=== PATIENT | female | born 1965 ===

== ENCOUNTER 2017-05-27 07:52 | Inpatient (IN) ==
--- NOTE | 2017-05-27 10:23 | Hospitalist History & Physical ---
Assessment and Plan (1) Pyelonephritis Status: Acute Assessment and plan: Obtain ultrasound of the kidney and retroperitoneal structures. Attention be paid to the kidney ureter bladder axis for possibility of not only pyelonephritis but also obstructing structures to the ureter and collecting system. She has had ertapenem and vancomycin given the ready I will switch the ertapenem to meropenem just on outside chance that we are dealing with Pseudomonas. Continue the vancomycin in the meantime. If blood pressures drop again patient will be given a loading dose of an aminoglycoside for few gram- negative urosepsis. Repeat a BMP and magnesium, CBC in the morning patient will be monitored in the NICU. Of consulted Dr. Murphy for a PICC line that will be put in due course. Current Visit: Yes (2) Hypotension Status: Acute Assessment and plan: As above. Patient will have lactic acid drawn alongside the other levels. This is elevated and repeat lactic acid will be drawn again in 6 hours. Due to monitor vital signs in ICU. Current Visit: Yes (3) Abdominal pain Status: Acute Assessment and plan: Suspect this is a result of urinary tract infection. Will evaluate for possibility of obstructing lesions as mentioned above. You repeat urinalysis and reflex urine culture be done Current Visit: Yes (4) Diabetes type 2, uncontrolled Status: Acute Assessment and plan: Patient will be put on basal insulin coverage home medication will be reviewed and resumed with appropriate modifications Current Visit: No Qualifiers: Diabetes mellitus complication status: with hyperglycemia History of Present Illness Chief complaint: Transfer from [facility]/UTI and hypotension i.e. septic shock History of present illness: is a 51 year old female Transfer from [facility] today with hypotension. Reported this patient has had complaints of urinary tract infection starting about a week and a half ago. She was given an oral antibiotic initially to treat his symptoms which failed symptoms worsen and they at that point came back to the clinic in the [facility] system where they looked at to the sensitivity of the initial urine suggested a change antibiotic to Levaquin which has not made a dent on her program she is now having lower abdominal pain right-sided costovertebral angle tenderness and a was noted to be hypotensive. Patient was started on IV fluids given a dose of ertapenem and the dose of vancomycin and [facility] evaluation and management. Is currently a with an optimal mean arterial pressure above 65 systolic blood pressure 112 initially. She is able to talk to me and answer questions without any limitations. This patient has accompanying documents with our unfortunately I cannot locate the antibiogram of the inciting organism as described in the accompanying notes. I do not know what organism it is however a urinalysis from yesterday obtained at about 7:12 PM has yellow clear urine 3+ glucose pH of 5.52+ blood and trace leukocyte esterase negative nitrite 25-30 red cells per high-power field. Home Medications Medication Instructions Recorded Confirmed Type Insulin Aspart [NovoLOG FlexPen] 10 unit SUBCUT DAILY 12/15/15 12/16/15 History Simvastatin [Zocor] 10 mg PO BEDTIME 12/15/15 12/15/15 History Tramadol HCl [Tramadol Tab] 50 mg PO BID 12/15/15 12/15/15 History cycloSPORINE OPH EMUL [Restasis] 1 drop BOTH EYES Q12HR 12/15/15 12/15/15 History glipiZIDE [Glipizide] 10 mg PO DAILY 12/15/15 12/15/15 History hydroCHLOROthiazide 25 mg PO DAILY 12/15/15 12/15/15 History [Hydrochlorothiazide] Allergies Allergy/AdvReac Type Severity Reaction Status Date / Time captopril AdvReac Nausea Verified 12/16/15 06:37 Medical,Surgical,& Family Hx - Medical History Cardio: History of: Hypertension Neurology: No history of: Seizures Endocrine: History of: Diabetes Mellitus (IDDM), Diabetes Mellitus (NIDDM) Hematology: No history of: Blood Transfusion Reaction Other: History of: Miscellaneous Medical Problems (abscesses, including a previously drained perirectal abscess.) No history of: Anesthesia Reactions, Anaphylaxis, Cancer - Surgical History Cardiac Surgeries: Patient Denies: Cardiac Catheterization Thoracic Surgeries: Patient denies;: Organ Transplant HEENT Surgeries: Patient denies: Eye Surgery Abdominal Surgeries: Patient denies: Abdominal Surgery Reproductive Surgeries: Surgical HX of;: Hysterectomy Orthopedic Surgeries: Surgical HX of;: Orthopedic Surgery (right rotator cuff repair) - Family History Family History: Reports;: Family Cancer (mom), Family Diabetes - Social History Smoking Status: Never smoker Review of systems: A 12 point system assessment was done patient is awake and answers questions appropriately no acute distress at this point blood pressure is optimal but the reported being very low prior to initiation of antibiotics and IV fluids. Other than the chief complaint and history of presenting illness and past medical history a 12 point system assessment is unremarkable Exam - Constitutional General appearance: morbidly obese - Head Head exam: Present: normocephalic, atraumatic - Eye Eye exam: Present: EOMI, other Pupils: Present: JENNIFER (Anicteric sclera) - ENT ENT exam: Present: normal oropharynx - Respiratory Respiratory exam: Present: clear to auscultation bilaterally - Cardiovascular Cardiovascular exam: Present: regular rate and rhythm - GI/Abdominal GI/Abdominal exam: Present: normal bowel sounds, soft, other (Bilateral costovertebral angle tenderness but most on the right side) - Extremities Exam Extremities exam: Present: full ROM - Neurological Exam Neurological exam: Present: alert, oriented X3, CN II-XII intact - Psychiatric Psychiatric exam: Present: normal affect, normal mood - Skin Skin exam: Present: normal color, warm, dry Results - Labs Lab Results: I have reviewed the past 24 hour labs (Reviewed the emergency room [facility]. No labs have been done here yet. Urine cultures from [facility] is not available but patient did have some pyuria on urinalysis done yesterday evening. The emergency room cultures done then. She does have elevated blood sugars and glucosuria CBC a white count of 11,000 hemoglobin 11.2 g percent hematocrit of 33.5 reticulocyte count 296,000 red cell indices were unremarkable chemistry creatinine of 0.9 calcium 7.3 sodium of 129 glucose of 251 BUN of 18 chloride of 97 bicarb of 22 alk phos of 97 SGOT 18 SGPT 21 lipase of 59 with the hypotension that was noted with need to check lactic acid repeat chemistries UA reflex urine culture and CBC. Also sent 2 sets of blood cultures)
[2017-05-27] MEDS ORDERED: GLUCAGON 1 MG VIAL IM PRN (10:46)
[2017-05-27] MEDS ORDERED: DEXTROSE 50% 25 GM/50 ML VIAL IV PRN (10:46)
[2017-05-27] MEDS ORDERED: LIDOCAINE 1% 20 ML VIAL MISC INJ ONE (11:09)
--- NOTE | 2017-05-27 11:25 | Operative Note ---
Date of procedure: 05/27/17 Pre-op diagnosis: Pyelonephritis Post-op diagnosis: same Procedure: The patient is a 51-year-old that is somewhat hypotensive and septic and needs IV line. A PICC line will be placed at the bedside. Procedure: The right arm was prepped and draped with the usual maximal sterile technique. With ultrasound guidance a right basilic vein was accessed. With a modified Seldinger technique, a 5 Irish double lumen power PICC was placed to 45 cm. There was good blood return and the line was sutured in place. She tolerated the procedure well without problems. Impression: PICC line placement right basilic vein to 45 cm. Anesthesia: local Surgeon / Physician: Santiago Murphy Estimated blood loss: minimal Specimens: none sent Condition: stable Disposition: ICU Discharge Plan - Discharge Medications No Action Tramadol HCl [Tramadol Tab] 50 mg PO BID glipiZIDE [Glipizide] 10 mg PO DAILY cycloSPORINE OPH EMUL [Restasis] 1 drop BOTH EYES Q12HR Simvastatin [Zocor] 10 mg PO BEDTIME hydroCHLOROthiazide [Hydrochlorothiazide] 25 mg PO DAILY Insulin Aspart [NovoLOG FlexPen] 10 unit SUBCUT DAILY - Follow Up or Referral - Forms/Instructions
[2017-05-27 12:15] LABS: Basophils % 0.1 % (0.0-0.8); Hematocrit 31.2 VOL% (35.7-47.0); Hemoglobin 11.3 GM/DL (12.0-16.0); Immature Granulocytes % 0.6 %; Immature Granulocytes Absolute 0.07 #; Lymphocytes # 0.6 10*3/uL (1.4-4.0); Lymphocytes % 5.1 % (21.3-54.2); Mean Corpuscular HGB Conc 36.2 GM/DL (32-36); Mean Corpuscular Hemoglobin 32 PG (27-34); Mean Corpuscular Volume 86.9 FL (87-102); Mean Platelet Volume 10.3 FL (9.6-12.0); Monocytes % 9.1 % (1.7-12.7); Neutrophils # 9.8 10*3/uL (1.4-7.4); Neutrophils % 85.1 % (38.7-73.9); Platelet Count 183 T/CUMM (130-400); Red Blood Count 3.59 MC/CUMM (3.8-5.5); Red Cell Distribution Width 12.6 % (9.3-17.3); White Blood Count 11.5 T/CUMM (4-12)
[2017-05-27 12:44] LABS: Albumin 2.5 G/DL (3.4-5.0); Bilirubin,Total 1.7 MG/DL (0.2-1.0); Calcium 7.5 MG/DL (8.5-10.1); Magnesium 1.7 MG/DL (1.8-2.4); Osmolality,Calculated 270.1 MOS/KG (273-304); Total Protein 5.8 G/DL (6.4-8.3)
[2017-05-27] MEDS: INSULIN REGULAR 100 UNIT/ML SUBCUT SCH ×4 (12:55→20:58)
[2017-05-27] MEDS ORDERED: SODIUM CHLORIDE 0.9% 1,000 ML IV SCH (13:00)
[2017-05-27] MEDS ORDERED: ACETAMINOPHEN 325 MG TABLET PO PRN (13:10)
[2017-05-27 13:20] LABS: Hypochromasia Slight
[2017-05-27 13:37] LABS: Apearance,Urine CLEAR (Clear); Bacteria,Urine Occasional /HPF (Few); Bilirubin,Urine Negative (Negative); Blood, Urine Moderate mg/dL (Negative); Glucose,Urine (UA) >=500 mg/dL (Negative); Ketones,Urine Negative (Negative); Mucus,Urine Occasional /LPF (Occasional); Nitrite,Urine Negative (Negative); Protein,Urine 30 MG/DL; RBC,Urine 9 /HPF (0-4); Squamous Epithelial Cell,Urine Occasional /HPF (0-10); Urine Color Amber (Yellow); Urine Specific Gravity 1.025 (1.001-1.035); WBC,Urine 24 /HPF (0-6)
--- NOTE | 2017-05-27 13:55 | CT Report ---
CT abdomen pelvis w con Indication: Abdominal pain, UTI. CT ABDOMEN AND PELVIS WITH CONTRAST DLP: 1909 mGy*cm. One or more of the following dose reduction techniques was used: Automated exposure control, adjustment of the mA and/or kV according the patient size, or use of iterative reconstruction techniques. Comparison: 05/05/[address] Technique: Axial CT images of the abdomen and pelvis were obtained with IV contrast; Omnipaque 350, 100 cc. Oral contrast was not administered. Abdomen: Calcified atheromatous disease of the coronary arteries noted. Heart size is normal. Bibasilar atelectasis. Fatty infiltration of the liver. No focal liver lesion. Cholecystectomy clips. Adrenal glands, pancreas and spleen are within normal limits. Left kidney is normal in size without inflammation or focal lesion. Right kidney appears enlarged. There is a wedge-shaped area of decreased perfusion midpole that is evidence of focal pyelonephritis. No perinephric abscess. There is also a second hypodensity that is round within the medial mid pole, likely a cyst. There is perinephric fat stranding on the right. The urinary collecting system is not obstructed and there are no stones within either kidney or either ureter. Urinary bladder is contracted but contains contrast. No bowel obstruction. Pelvis: Contracted urinary bladder as described. Uterus is absent. Rectosigmoid colon appears unremarkable. Trace amount of free fluid in the cul-de-sac is present. No free air or lymphadenopathy identified. Impression: 1. Focal perfusion defect of the mid right kidney is evidence of focal pyelonephritis. No evidence of pyonephrosis, urinary calculi, obstructive uropathy or perinephric abscess. Small amount of right perinephric fat stranding noted. 2. 15 mm hypodensity medial right kidney is likely a cyst. 3. Hepatic steatosis. PROCEDURE INTERPRETED AT [facility] DEPARTMENT OF RADIOLOGY Final Report Signed by: Nadir Dobson M.D.
[2017-05-27] MEDS ORDERED: ERGOCALCIFEROL 50,000 UNIT CAPSULE PO SCH (15:30)
[2017-05-27] MEDS: GENTAMICIN INJ 240 MG in SODIUM CHLORIDE 0.9% 100 ML IV SCH (16:09)
[2017-05-27] MEDS: SODIUM CHLORIDE 1 GM TABLET PO SCH ×2 (16:09→20:38)
[2017-05-27] MEDS: DICLOFENAC 1% GEL 100 GM TUBE TOP SCH ×2 (18:50→20:58)
[2017-05-27] MEDS: GABAPENTIN 100 MG CAPSULE PO SCH (20:38)
[2017-05-27] MEDS: SIMVASTATIN 10 MG TABLET PO SCH (20:38)
[2017-05-27] MEDS: traMADol 50 MG TABLET PO SCH (20:38)
[2017-05-27] MEDS: cycloSPORINE OPH EMUL 1 VIAL BOTH EYES SCH (20:38)
[2017-05-27] MEDS ORDERED: INSULIN GLARGINE 100 UNIT/ML SUBCUT SCH ×2 (21:00)
[2017-05-27] MEDS: ONDANSETRON 4 MG/2 ML VIAL IV PRN (21:05)
[2017-05-28 06:03] LABS: Calcium 7.7 MG/DL (8.5-10.1); Magnesium 1.8 MG/DL (1.8-2.4); Osmolality,Calculated 264.7 MOS/KG (273-304); Potassium 3.8 MMOL/L (3.5-5.1)
[2017-05-28] MEDS: SODIUM CHLORIDE 1 GM TABLET PO SCH ×3 (08:29→20:59)
[2017-05-28] MEDS: cycloSPORINE OPH EMUL 1 VIAL BOTH EYES SCH ×2 (08:29→20:58)
[2017-05-28] MEDS: traMADol 50 MG TABLET PO SCH ×2 (08:29→20:59)
[2017-05-28] MEDS: glipiZIDE 10 MG TABLET PO SCH (08:29)
[2017-05-28] MEDS: GABAPENTIN 100 MG CAPSULE PO SCH ×3 (08:29→20:59)
[2017-05-28] MEDS: INSULIN REGULAR 100 UNIT/ML SUBCUT SCH ×4 (08:29→20:58)
[2017-05-28] MEDS: ASPIRIN EC 81 MG TABLET PO SCH (08:30)
[2017-05-28] MEDS: DICLOFENAC 1% GEL 100 GM TUBE TOP SCH ×4 (08:31→20:59)
[2017-05-28] MEDS: amLODIPine 2.5 MG TABLET PO SCH (08:36)
[2017-05-28] MEDS: hydroCHLOROthiazide 25 MG TABLET PO SCH (08:36)
--- NOTE | 2017-05-28 09:41 | Hospitalist Progress Note ---
Assessment and Plan (1) Pyelonephritis Status: Acute Assessment and plan: Patient had abdominal CT scan done yesterday that revealed presence of pyelonephritis. No obstructive disease. Did receive gentamicin yesterday after ertapenem and will plan to start vancomycin as we await for cultures. 2 sets of blood cultures were ordered yesterday. Doing very well she will be transferred to the medical floor today Current Visit: Yes (2) Hypotension Status: Acute Assessment and plan: Blood pressures have normalized. Current Visit: Yes (3) Abdominal pain Status: Acute Assessment and plan: Significant improvement today. This remnant bilateral CVA tenderness. Current Visit: Yes (4) Diabetes type 2, uncontrolled Status: Acute Assessment and plan: Morning sugar was 155. Hopefully this continued to improve. Current Visit: No Qualifiers: Diabetes mellitus complication status: with hyperglycemia Hospitalist: Subjective Interval history: Patient has been seen interviewed and examined and chart has been reviewed. She is doing very well today. She reports significant improvement in abdominal pain especially of the suprapubic pain. She still has residual pain in the left and right costovertebral angles. CT scan revealed presence of pyelonephritis but no obstructive disease in the kidney ureter bladder axis. She should will be transferred from the intensive care unit general medical floor today Exam - Constitutional Vitals: Period Temp Pulse Resp BP Sys/Rivera Pulse Ox Last 24 Hr 97.9 F-102.3 F 76-110 10-28 100-155/56-86 89-100 General appearance: over weight - Head Head exam: Present: normocephalic, atraumatic - Eye Eye exam: Present: EOMI Pupils: Present: JENNIFER - ENT ENT exam: Present: normal oropharynx - Neck Neck exam: Present: normal inspection - Respiratory Respiratory exam: Present: clear to auscultation bilaterally - Cardiovascular Cardiovascular exam: Present: regular rate and rhythm - GI/Abdominal GI/Abdominal exam: Present: normal bowel sounds, soft, other (Bilateral CVA tenderness. Improvement in suprapubic tenderness.) - Extremities Exam Extremities exam: Present: full ROM - Neurological Exam Neurological exam: Present: alert, oriented X3, CN II-XII intact - Psychiatric Psychiatric exam: Present: normal affect, normal mood - Skin Skin exam: Present: normal color, warm, dry Results - Labs CBC & BMP: 05/27/17 12:01 05/28/17 05:00 Lab Results: I have reviewed the past 24 hour labs
[2017-05-28] MEDS: VANCOMYCIN INJ 1,250 MG in SODIUM CHLORIDE 0.9% 250 ML IV SCH ×2 (10:13→22:30)
[2017-05-28] MEDS: MEROPENEM 1,000 MG in SODIUM CHLORIDE 0.9% 100 ML IV SCH ×2 (10:16→17:15)
[2017-05-28] MEDS ORDERED: Propylene Glycol/Peg 400 [Systane Gel Drops] 1 DROP BOTH EYES PRN (12:59)
[2017-05-28] MEDS: GENTAMICIN INJ 240 MG in SODIUM CHLORIDE 0.9% 100 ML IV SCH (16:00)
[2017-05-28] MEDS: metFORMIN 850 MG TABLET PO SCH (17:15)
[2017-05-28] MEDS: ONDANSETRON 4 MG/2 ML VIAL IV PRN (17:15)
[2017-05-28] MEDS: INSULIN GLARGINE 100 UNIT/ML SUBCUT SCH (20:58)
[2017-05-28] MEDS: SIMVASTATIN 10 MG TABLET PO SCH (20:59)
[2017-05-29] MEDS: MEROPENEM 1,000 MG in SODIUM CHLORIDE 0.9% 100 ML IV SCH ×3 (03:24→17:00)
[2017-05-29] MEDS: cycloSPORINE OPH EMUL 1 VIAL BOTH EYES SCH ×2 (09:10→20:47)
[2017-05-29] MEDS: INSULIN REGULAR 100 UNIT/ML SUBCUT SCH ×4 (09:10→20:45)
[2017-05-29] MEDS: GABAPENTIN 100 MG CAPSULE PO SCH ×3 (09:11→20:46)
[2017-05-29] MEDS: glipiZIDE 10 MG TABLET PO SCH (09:11)
[2017-05-29] MEDS: metFORMIN 850 MG TABLET PO SCH ×2 (09:11→16:52)
[2017-05-29] MEDS: hydroCHLOROthiazide 25 MG TABLET PO SCH (09:11)
[2017-05-29] MEDS: ASPIRIN EC 81 MG TABLET PO SCH (09:11)
[2017-05-29] MEDS: traMADol 50 MG TABLET PO SCH ×2 (09:11→20:46)
[2017-05-29] MEDS: amLODIPine 2.5 MG TABLET PO SCH (09:11)
[2017-05-29] MEDS: DICLOFENAC 1% GEL 100 GM TUBE TOP SCH ×4 (09:18→20:47)
--- NOTE | 2017-05-29 11:13 | Hospitalist Progress Note ---
Assessment and Plan (1) Diabetes type 2, uncontrolled Status: Acute Assessment and plan: Continue home regimen Current Visit: No Qualifiers: Diabetes mellitus complication status: with hyperglycemia (2) Pyelonephritis Status: Acute Assessment and plan: CT is consistent with this Urine culture actually with no growth at 24 hours, continue to f/u final Blood cultures also with no growth to date Will continue vancomycin and merrem Hypotension is resolved Current Visit: Yes Hospitalist: Subjective Interval history: No acute events overnight. She denies abdominal or back pain. She also denies shortness of breath. Exam - Constitutional Vitals: Period Temp Pulse Resp BP Sys/Rivera Pulse Ox Last 24 Hr 97.7 F-100.2 F 77-96 14-20 113-149/59-89 93-100 General appearance: normal weight - Head Head exam: Present: normocephalic, atraumatic - Eye Eye exam: Present: EOMI Pupils: Present: JENNIFER - ENT ENT exam: Present: normal exam - Neck Neck exam: Present: normal inspection - Respiratory Respiratory exam: Present: clear to auscultation bilaterally - Cardiovascular Cardiovascular exam: Present: regular rate and rhythm - GI/Abdominal GI/Abdominal exam: Present: normal bowel sounds, soft. Absent: tenderness, rebound - Extremities Exam Extremities exam: Present: normal inspection - Back Exam Back exam: Present: normal inspection - Neurological Exam Neurological exam: Present: alert, oriented X3 - Psychiatric Psychiatric exam: Present: normal affect, normal mood - Skin Skin exam: Present: warm, intact Results - Labs CBC & BMP: 05/27/17 12:01 05/28/17 05:00
[2017-05-29 12:16] LABS: Calcium 7.8 MG/DL (8.5-10.1); Osmolality,Calculated 281.7 MOS/KG (273-304); Potassium 4.1 MMOL/L (3.5-5.1)
[2017-05-29] MEDS: VANCOMYCIN INJ 1,250 MG in SODIUM CHLORIDE 0.9% 250 ML IV SCH ×2 (13:45→21:35)
[2017-05-29] MEDS: INSULIN GLARGINE 100 UNIT/ML SUBCUT SCH (20:46)
[2017-05-29] MEDS: SIMVASTATIN 10 MG TABLET PO SCH (20:47)
[2017-05-30] MEDS: MEROPENEM 1,000 MG in SODIUM CHLORIDE 0.9% 100 ML IV SCH ×2 (02:01→11:06)
[2017-05-30 07:14] LABS: Calcium 7.6 MG/DL (8.5-10.1); Magnesium 1.7 MG/DL (1.8-2.4); Osmolality,Calculated 274.4 MOS/KG (273-304); Potassium 3.5 MMOL/L (3.5-5.1)
[2017-05-30 07:37] VITALS: BP 122/62
--- NOTE | 2017-05-30 08:40 | XRay Report ---
Portable chest Date: 05/27/2017 Clinical history: Sepsis, hyponatremia Comparison: 05/05/2016 Technique: Portable AP sitting chest Findings: Films submitted for interpretation 05/30/2017. The heart remains normal in size. Artifactual densities limit evaluation of the left upper lobe where there is progressive diffuse parenchymal findings extending to the level of the left hilum. Expiratory chest with progressive parenchymal findings at the lung bases. Right arm PICC line with tip in right atrium. No pneumothorax. Minimally increased hilar density with no acute osseous findings. Impression: Limited expiratory chest with findings which can be seen with bilateral pneumonia with associated atelectasis. It is difficult to exclude additional pathology in the left upper lobe and follow-up chest x-ray is recommended to document clearing. PROCEDURE INTERPRETED AT [facility] DEPARTMENT OF RADIOLOGY Final Report Signed by: Dr. Portia Devlin
[2017-05-30] MEDS: amLODIPine 2.5 MG TABLET PO SCH (09:21)
[2017-05-30] MEDS: GABAPENTIN 100 MG CAPSULE PO SCH (09:21)
[2017-05-30] MEDS: glipiZIDE 10 MG TABLET PO SCH (09:21)
[2017-05-30] MEDS: traMADol 50 MG TABLET PO SCH (09:21)
[2017-05-30] MEDS: metFORMIN 850 MG TABLET PO SCH (09:22)
[2017-05-30] MEDS: ASPIRIN EC 81 MG TABLET PO SCH (09:22)
[2017-05-30] MEDS: hydroCHLOROthiazide 25 MG TABLET PO SCH (09:22)
[2017-05-30] MEDS: INSULIN REGULAR 100 UNIT/ML SUBCUT SCH ×2 (09:22→12:33)
[2017-05-30] MEDS: DICLOFENAC 1% GEL 100 GM TUBE TOP SCH (09:23)
[2017-05-30] MEDS: cycloSPORINE OPH EMUL 1 VIAL BOTH EYES SCH (09:26)
--- NOTE | 2017-05-30 10:00 | Discharge Summary ---
<Adelina Figueroada - Last Filed: 05/30/17 09:57> Hospital Course - Hospital Course Hospital Course: This is a 51-year-old female that presented to [facility] on May 27, 2017 as a transfer from the [facility] for the further evaluation of septic shock secondary to urinary tract infection. Patient has a medical history significant for hypertension, insulin-dependent diabetes mellitus, and recurrent abscesses. Patient has surgical history significant for hysterectomy, right rotator cuff repair, and multiple incision and drainage procedure secondary to recurrent abscesses. The patient reported the onset of symptoms 2 days prior to presentation. She was seen and evaluated at the [facility], told that she had a urinary tract infection, and given oral antibiotic agents for treatment. The patient's condition failed to improve causing the patient to present back to the [facility] for the second time for the above complaint. At that time, culture and sensitivity report was available which showed a sensitivity to Levaquin. The medical staff contemplated on changing the patient's oral antibiotic agent according to the sensitivity report however, at the time of presentation the patient was noted to be experiencing right-sided abdominal pain and costovertebral angle tenderness. In addition, the patient was noted to be hypotensive. Blood cultures were obtained and empiric antibiotic doses were given. The patient was subsequently transferred to [facility] for continuation of care. Empiric antibiotics, gentle rehydration, and pain management was initiated at the time of admission. CT abdomen and pelvis was ordered at the time of admission; which reported focal perfusion deficit of the mid right kidney is evidence of pyelonephritis, no evidence of pyonephritis, urinary calculi, obstructive uropathy, or perinephrenic abscesses were noted. A small amount of right perinephric fat stranding was noted. In addition, a 15 mm hypodensity was noted to the right medial kidney which was large suggested as a cyst and hepatic steatosis was noted. Antibiotic coverage was continued and the patient' s condition gradually improved. Blood and urine culture unremarkable with no growth to date noted. The patient's condition is stable. The patient has not experienced any significant overnight events. Today, we feel that the patient is indeed appropriate for discharge to follow-up at the [facility] as indicated. Discharge Plan - Discharge Data Disposition: Disch To Home/Self Care - Discharge Medications New Ciprofloxacin Tab [Cipro Tab] 500 mg PO BID #16 tablet Continue glipiZIDE [Glipizide] 10 mg PO DAILY cycloSPORINE OPH EMUL [Restasis] 1 drop BOTH EYES Q12HR Simvastatin [Zocor] 10 mg PO BEDTIME hydroCHLOROthiazide [Hydrochlorothiazide] 25 mg PO DAILY Ergocalciferol [Drisdol] 50,000 unit PO Q7D Propylene Glycol/Peg 400 [Systane Gel Drops] 1 drop BOTH EYES QID PRN PRN Reason: Dry Eyes Diclofenac 1% Gel [Voltaren 1% Gel] 2 gram TOP QID metFORMIN [Glucophage] 850 mg PO BID W/MEALS Acetaminophen 650 mg PO Q6HR PRN PRN Reason: Fever, Headache, Mild Pain Insulin Detemir [Levemir FlexPen] 50 unit SUBCUT BEDTIME Gabapentin 100 mg PO TID Aspirin EC Tab 81 mg PO DAILY Discontinued metroNIDAZOLE [Metronidazole Cap/Tab] 500 mg PO BID Naproxen [Naprosyn Tab] 220 mg PO DAILY PRN PRN Reason: Pain levoFLOXacin [Levofloxacin] 500 mg PO DAILY Ibuprofen 400 mg PO Q6HR PRN PRN Reason: Pain Sulfameth/Trimeth 800-160 Tab [Bactrim DS Tab] 1 tablet PO BEDTIME Lisinopril 20 mg PO DAILY - Follow Up or Referral - Forms/Instructions Exam - Constitutional Vitals: Period Temp Pulse Resp BP Sys/Rivera Pulse Ox Last 24 Hr 97.1 F-98.8 F 73-91 16-18 111-136/51-75 92-100 Discharge Results Procedures and tests throughout hospitalization: Pending Orders 05/27/17 13:35 Blood Culture Routine 05/30/17 10:00 Vancomycin,Trough Timed Labs on day of discharge: Labs from last 24 hours 05/30/17 05/30/17 05/29/17 06:32 05:46 20:03 Sodium 140 Potassium 3.5 Chloride 104 Carbon Dioxide 29 Anion Gap 10.5 BUN 7 Creatinine 0.60 GFR Calculation 120 BUN/Creatinine Ratio 11.00 Glucose 67 L POC Glucose 78 229 H Calculated Osmolality 274.4 Calcium 7.6 L Magnesium 1.7 L 05/29/17 05/29/17 16:16 11:45 Sodium 138 Potassium 4.1 Chloride 105 Carbon Dioxide 28 Anion Gap 9.1 BUN 10 Creatinine 0.70 GFR Calculation 115 BUN/Creatinine Ratio 14.00 Glucose 240 H POC Glucose 177 H Calculated Osmolality 281.7 Calcium 7.8 L Magnesium Preliminary micro results at discharge 05/27/17 13:35 Blood Culture - Preliminary Blood No growth at 1 day 05/27/17 13:35 Blood Culture - Preliminary Blood No growth at 1 day DS: Provider Date of admission: 05/28/17 09:45 Primary care physician: Danna Hastings MD Attending physician on admission: Fer Ellis MD Consults: 05/27/17 10:34 Consult to Pastoral Services [CONS] Routine Comment: Pastoral Screen: Declines Visit Pastoral Screen Source of Request: Patient 05/28/17 09:36 Consult to Pharmacy [CONS] Routine Reason for Pharmacy Consult: Dose/Manage Vancomycin Discharging clinician: Kedar Figueroa CNP <Josie Shane - Last Filed: 05/30/17 10:19> Hospital Course - Time spent with patient Time with patient DS: Greater than 30 minutes (35) Diagnosis - Discharge Diagnosis (1) Diabetes type 2, uncontrolled Status: Chronic (2) Pyelonephritis Status: Resolved Discharge Plan - Discharge Data Condition at Discharge: Stable Discharge Diet: advance to your usual diet Activity: increase activity as tolerated Hygiene: no restrictions Weight Bearing at Discharge: weight bear as tolerated Driving: no restrictions Contact your physician if you experience:: fever over 101 Exam - Constitutional General appearance: normal weight - Head Head exam: Present: normocephalic, atraumatic - Eye Eye exam: Present: EOMI Pupils: Present: JENNIFER - ENT ENT exam: Present: normal exam - Neck Neck exam: Present: normal inspection - Respiratory Respiratory exam: Present: clear to auscultation bilaterally. Absent: rhonchi, wheezes - Cardiovascular Cardiovascular exam: Present: regular rate and rhythm - GI/Abdominal GI/Abdominal exam: Present: normal bowel sounds, soft. Absent: tenderness, rebound - Extremities Exam Extremities exam: Present: normal inspection - Back Exam Back exam: Present: normal inspection - Neurological Exam Neurological exam: Present: alert, oriented X3 - Psychiatric Psychiatric exam: Present: normal affect, normal mood - Skin Skin exam: Present: warm, intact
[2017-05-30] MEDS ORDERED: PNEUMOCOCCAL VACCINE (23 VALENT) 0.5 ML VIAL IM ONE (12:00)
[2017-05-30] MEDS: VANCOMYCIN INJ 1,250 MG in SODIUM CHLORIDE 0.9% 250 ML IV SCH (12:25)
== END 2017-05-30 13:00 | disposition home or self-care (01) | DRG 871 ==
LOC: N.ICU 10:05 → SUATTDRO 05-28 09:45 → N.5E 05-28 12:58
PROVIDERS: ADMIT Internal Medicine Infectious Disease; ATTEND Internal Medicine